=== PATIENT | male | born 1945 | race Caucasian/White ===

== ENCOUNTER 2018-07-24 10:35 | Day surgery (SDC) | payer OTHER, MEDICARE ==
[2018-07-24] MEDS ORDERED: ATROPINE SULFATE 1 MG/10 ML SYR IVP ONE (10:37)
[2018-07-24] MEDS ORDERED: fentaNYL 100 MCG/2 ML INJ IVP ONE (10:37)
[2018-07-24] MEDS ORDERED: BENZOCAINE UNIT DOSE SPRAY HURRICAINE MM ONE (10:37)
[2018-07-24] MEDS ORDERED: NS 500 ML IV ONE (10:37)
[2018-07-24] MEDS ORDERED: MIDAZOLAM 2 MG/2 ML VIAL IVP ONE (10:37)
--- NOTE | 2018-07-24 11:21 | PDGENHP ---
History & Physical Chief Complaint: Irregular heartbeat History of Present Illness: 72-year-old male history of paroxysmal atrial fibrillation visiting from out of town when he developed the acute onset of an irregular heartbeat associated with profound fatigue it on Tuesday at about 3: 00 p.m.. This was associated with caffeine use. He had no chest pain, shortness of breath, PND orthopnea. He had no syncope or near syncope. He did have onset of palpitations prior to developing atrial fibrillation. He has known AFib. He has had cardioversion twice before as well as a single episode that converted spontaneously. He has had extensive workup including a negative stress echo in March. He has known 50% lad disease. No history of valvular abnormalities. He has well controlled hypertension. He is otherwise in excellent health enjoying good quality of life. Pertinent Past, Social, Family History: Atrial fibrillation. Coronary disease. Hypertension. 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 His son in law is a r physician here in town. Relevant Physical Exam: Heart rate 91 irregular. Blood pressure 130/70. 92% saturated on room air. No JVP at 90 degrees. Chest is clear to auscultation percussion. Cardiac exam revealed irregular irregular rhythm with no murmur rub or gallop. Abdomen was soft nontender with good bowel sounds there is no organomegaly. Extremities are free of edema. Radial pulses +2. Femoral pulses +2. Neurologically facial symmetry. Moving extremities well. Sensation grossly intact. Skin warm and dry without rash Cardiorespiratory Assessment: Paroxysmal atrial fibrillation with recurrence since 3:00 p.m.. He is appropriately anticoagulated. He is well rate controlled. Plan for cardioversion today with continued aggressive medical therapy. No evidence of unstable coronary syndrome based on clinical history, EKG, exam. No contraindications to proceeding with conversion today identified.
[2018-07-24 11:24] LABS: INR 1.18 (0.83-1.16); PROTIME(PATIENT) 15.2 SEC (12.0-15.0)
[2018-07-24] MEDS ORDERED: PROPOFOL 200 MG/20 ML VIAL ONE (11:42)
--- NOTE | 2018-07-24 11:45 | CPEKG ---
Test Reason : OPEN Blood Pressure : / mmHG Vent. Rate : 096 BPM Atrial Rate : 140 BPM P-R Int : 157 ms QRS Dur : 078 ms QT Int : 339 ms P-R-T Axes : 079 050 -06 degrees QTc Int : 429 ms Atrial fibrillation Probable LVH with secondary repol abnrm Confirmed by Coreen Zepeda ([id number]) on 07/24/2018 11:44:58 AM Referred By: Confirmed By:Coreen Zepeda
--- NOTE | 2018-07-24 11:52 | PDTEE1 ---
[facility] Cardioversion Procedure Procedure: electrical cardioversion Indications: atrial fibrillation Consent: signed and in chart Anticoagulation: eliquis Procedural Details: Pads were placed in anterior-posterior position. Synchronized cardioversion attempt #1: 200J Results: normal sinus rhythm Conclusions: successful cardioversion Patient Problems: Problems Problem Status Onset Coronary artery disease Acute Hypertension Acute Atrial fibrillation Acute
--- NOTE | 2018-07-24 12:44 | PDANEPAE ---
ANE History of Present Illness A-fib with RVR ANE Past Medical History - Cardiovascular History Hx Hypertension: Yes Hx Arrhythmias: Yes Hx Chest Pain: No Hx Coronary Artery / Peripheral Vascular Disease: No Hx CHF / Valvular Disease: No - Pulmonary History Hx COPD: No Hx Asthma/Reactive Airway Disease: No Hx Recent Upper Respiratory Infection: No Hx Oxygen in Use at Home: No Hx Sleep Apnea: No - Neurologic History Hx Cerebrovascular Accident: No Hx Seizures: No Hx Dementia: No - Endocrine History Hx Diabetes: No Hypothyroid: No Hyperthyroid: No Obesity: no - Renal History Hx Renal Disorders: No - Liver History Hx Hepatic Disorders: No ANE Review of Systems Review of Systems: - Exercise capacity Exercise capacity: >=4 METS ANE Patient History - Allergies Allergies/Adverse Reactions: No Known Allergies Allergy (Unverified 07/24/18 10:37) - Smoking Hx Smoking Status: Never smoked ANE Labs/Vital Signs - Labs Result Diagrams: 07/24/18 10:50 - Vital Signs Height: 180 cm Weight: 83.9 kg ANE Physical Exam - Airway Neck exam: FROM Mallampati Score: Class 2 Mouth exam: normal dental/mouth exam - Pulmonary Pulmonary: no respiratory distress - Cardiovascular Cardiovascular: irregularly irregular - ASA Status ASA Status: II ANE Anesthesia Plan Anesthesia Plan: GA with mask
--- NOTE | 2018-07-24 12:45 | POSTANESTH ---
Post Anesthetic Evaluation Cardiovascular Status: Normal, Stable Respiratory Status: Normal, Stable Level of Consciousness/Mental Status: Can Participate in Eval Pain Control: Adequate, Prn Tx Ordered Nausea/Vomiting Control: Adequate, Prn Tx Ordered Complications Possibly Related to Anesthesia: None Noted
--- NOTE | 2018-07-24 17:16 | CPEKG ---
Test Reason : OPEN Blood Pressure : / mmHG Vent. Rate : 049 BPM Atrial Rate : 049 BPM P-R Int : 211 ms QRS Dur : 081 ms QT Int : 449 ms P-R-T Axes : 057 034 059 degrees QTc Int : 406 ms Sinus bradycardia Confirmed by Coreen Zepeda ([id number]) on 07/24/2018 5:15:45 PM Referred By: Confirmed By:Coreen Zepeda
== END 2018-07-24 13:25 | disposition home or self-care (01) ==
LOC: FCATH 10:35
PROVIDERS: ATTEND Internal Medicine Interventional Cardiology
PROC: 5A2204Z Restoration of Cardiac Rhythm, Single (ICD-10-PCS; principal; 2018-07-24)
DX: I48.0 Paroxysmal atrial fibrillation (principal); I10 Essential (primary) hypertension; I25.10 Atherosclerotic heart disease of native coronary artery without angina pectoris
CPT/HCPCS: J2704